=== PATIENT | female | born 1965 | race Caucasian/White ===

== ENCOUNTER 2020-03-28 15:21 | Outpatient (CLI) | payer OTHER, SELFPAY ==
--- NOTE | ~2020-03-28 | XR_ITS ---
XR knee LT 3V 03/28/2020 15:48 Indication: Left knee pain Procedure: 3 views left knee Comparison: No prior studies for comparison. Findings: Mild osteoarthritis of the left knee. No fracture or traumatic malalignment. No significant soft tissue abnormality. No joint effusion. Impression: 1: Mild osteoarthritis of the left knee. Reviewed, dictated and finalized at location A. Impression: 1: Mild osteoarthritis of the left knee.
== END 2020-03-28 15:22 | disposition home or self-care (01) ==
LOC: ANHIMG 15:31
PROVIDERS: PCP Family Medicine; Visit Provider Family Medicine
DX: M17.12 Unilateral primary osteoarthritis, left knee (principal)
CPT/HCPCS: 73562

== ENCOUNTER 2020-04-29 10:48 | Outpatient (CLI) | payer OTHER, SELFPAY ==
--- NOTE | ~2020-04-29 | MR_ITS ---
EXAMINATION: MR knee LT wo con DATE: 04/29/2020 12:06 INDICATION: Left knee pain. TECHNIQUE: Magnetic resonance imaging (MRI) of the left knee was performed without intravenous contra st. Sequences included axial PD-weighted FS FSE, coronal PD-weighted FSE and PD-weighted FS FSE, sagi ttal PD-weighted FSE, and sagittal T2-weighted FS FSE. COMPARISON: Left knee radiographs 03/28/2020 FINDINGS: Medial compartment: Medial meniscus is normal. There is shallow partial-thickness cartilage loss of femoral condyle invol ving the central articular surface. Tibial cartilage is normal. Lateral compartment: Lateral meniscus is normal. There is cartilage surface irregularity of femoral condyle and tibial con dyle. There is a subchondral insufficiency fracture of femoral condyle involving the central and post erior articular surface with low signal fracture line and surrounding bone marrow edema. Patellofemoral compartment: There is full-thickness cartilage loss of patellar median ridge and adjacent portions of the medial a nd lateral facets with mild subchondral edema-like marrow signal intensity. There is cartilage surfac e irregularity of trochlea. Ligaments and tendons: The anterior and posterior cruciate ligaments are normal. Medial collateral ligament is normal. There are changes of prior sprain of fibular collateral ligament characterized by thickening and increased signal intensity proximally. There is mild patellar tendinopathy. Fluid: There is a small knee joint effusion. There is trace fluid in a Billingsley's cyst. IMPRESSION: 1. Subchondral insufficiency fracture of lateral femoral condyle. 2. Severe chondrosis of patellofemoral compartment and mild chondrosis of medial and lateral compartm ents. 3. Small knee joint effusion. Reviewed, dictated and finalized at location A. IMPRESSION: 1. Subchondral insufficiency fracture of lateral femoral condyle. 2. Severe chondrosis of patellofemoral compartment and mild chondrosis of media l and lateral compartments. 3. Small knee joint effusion.
== END 2020-04-29 10:49 | disposition home or self-care (01) ==
PROVIDERS: PCP Family Medicine; Visit Provider Nurse Practitioner Family
DX: M25.562 Pain in left knee (principal); M84.452A Pathological fracture, left femur, initial encounter for fracture; M22.2X2 Patellofemoral disorders, left knee; M25.462 Effusion, left knee
CPT/HCPCS: 73721

== ENCOUNTER 2021-06-28 02:08 | Day surgery (SDC) | payer OTHER, SELFPAY ==
[2021-06-16 14:43] VITALS: BMI 29.1
[2021-06-28 09:07] VITALS: BP 143/78; PULSE 73; RESP 18; TEMP 37.1; O2SAT 100; BMI 29.8
[2021-06-28] MEDS: LACTATED RINGERS 1,000 ML 150 ML IV CONT (09:14)
--- NOTE | 2021-06-28 09:55 | WPDANESEPPF ---
Anes - Initial Pre Proc Eval Procedure: Operation Date: 06/28/21 10:15 Proposed Procedures p Esophagogastroduodenoscopy - Thom Osorio MD Date/Time: 06/28/21 09:55 Surgeon: Thom Osorio MD Pre Op Diagnosis: chest pain Patient Data Age: 56 Gender: F Height: 1.63 m Weight: 78.9 kg Last Vital Signs Temp 98.7 F 06/28/21 09:07 Pulse 73 06/28/21 09:07 Resp 18 06/28/21 09:07 BP 143/78 H 06/28/21 09:07 Pulse Ox 100 06/28/21 09:07 Allergies Allergy/AdvReac Type Severity Reaction Status Date / Time Penicillins Allergy Unknown rash Verified 06/28/21 09:06 Home Medications Medication Instructions Recorded Confirmed Type calcium carbonate 500 mg calcium 500 mg PO DAILY 08/04/19 06/16/21 History (1,250 mg) tablet Lactobacillus 1 cap PO DAILY 03/18/20 06/16/21 History acidophilus-Bifidobac.animalis 2.5 billion cell capsule cholecalciferol (vitamin D3) 75 75 mcg PO DAILY 03/18/20 06/16/21 History mcg (3,000 unit) tablet albuterol sulfate 90 mcg/actuation 1 puff INHALATION Q4H PRN #18 g 09/12/20 06/16/21 Rx aerosol inhaler hydrochlorothiazide 12.5 mg tablet 12.5 mg PO DAILY #90 tablet 04/04/21 06/16/21 Rx alendronate 70 mg tablet 70 mg PO WEEKLY #14 tablet 06/15/21 06/16/21 Rx losartan 50 mg tablet 50 mg PO DAILY #90 tablet 06/15/21 06/16/21 Rx valacyclovir [Valtrex] 500 mg PO DAILY 06/16/21 06/16/21 History fluticasone propionate 220 1 puff INHALATION Q12H #12 g 06/23/21 Rx mcg/actuation HFA aerosol inhaler Patient hx anesthesia problems: none Family hx anesthesia problems: none Results Review: All pre-operative results and documents have been reviewed as part of the pre-operative evaluation. [facility] Past Medical History Medical History (Updated 05/29/21 @ 20:37 by Vesta Garcia MD) Acute pain of left knee Allergic asthma Chondromalacia, patella Essential (primary) hypertension Herpes febrilis Hypertension Lateral epicondylitis of right elbow Lip licking dermatitis Mass of knee Osteopenia Patellofemoral syndrome Rosacea Subchondral insufficiency fracture of condyle of femur Vision abnormalities Surgical History Surgical History History of tonsillectomy and adenoidectomy Family History Family History Mother Hypertension Father Family history of hepatitis, Onset Age: 56 Patient's father is Grandparent Family history of osteoporosis Other Asthma Cerebrovascular accident Diabetes mellitus Social History Social History (Updated 05/18/21 @ 14:21 by Lorrie Sommer) Social History: Smoking status: Never smoker Second hand tobacco smoke exposure: No Alcohol intake: current Drinks per week: 6 Substance use: never Substance use type: does not use Living arrangements: with family Gender identity (if verbalized by the patient): Female Sexual Orientation (if Verbalized by the Patient): Straight or Heterosexual Spiritual care concerns: No Anes - Eval Final PreProcedure Day of Procedure 06/28/21 09:55 Patient weight: overweight Heart: regular rate and rhythm Lungs: clear to auscultation Airway: Mallampati scale class II Neurological: alert and oriented Last oral intake: >/= 8 hours ASA classification: II Emergent: no Anesthetic plan: proceed Anesthesia type and monitoring: general GIVS and standard monitoring Results Review: All pre-operative results and documents have been reviewed as part of the pre-operative evaluation. Informed Consent: The patient's anesthetic plan and its attendant risks and benefits were discussed with the patient/family/POA. Questions were solicited and answers provided to the satisfaction of the patient/family/POA.
--- NOTE | 2021-06-28 10:13 | PM.HPGS ---
History of Present Illness History of Present Illness Consent: Risks, benefits, and alternatives have been discussed and questions answered. Patient agrees to proceed with procedure. Chief complaint: chest pain Narrative: Jazmín Faustin is a 56 year old female with non-cardiac chest pain, never had egd Review of Systems Constitutional: Constitutional: Denies headache(s) and Denies weakness Eyes: Eyes: Denies blurry vision ENT: Reports Normal hearing present, Denies headache(s) and Denies neck pain Cardiovascular: Cardiovascular: Denies chest pain and Denies dyspnea Respiratory: Respiratory: Denies dyspnea Gastrointestinal: Gastrointestinal: Reports no additional gastrointestinal complaints Genitourinary: Genitourinary: Denies dysuria Musculoskeletal: Musculoskeletal: Denies neck pain Integumentary/Breasts: Skin/Breast: Denies dry skin Neurologic: Reports Normal hearing present, Denies headache(s) and Denies weakness Psychiatric: Psychiatric: Denies anxiety Endocrine: Endocrine: Denies change in body appearance Hematologic/Lymphatic: Hematologic/Lymphatic: Denies easy bleeding Allergic/Immunologic: Allergic/Immunologic: Denies urticaria PMFSH Past Medical History Medical History (Updated 06/28/21 @ 10:14 by Thom Osorio MD) Acute pain of left knee Allergic asthma Chondromalacia, patella Essential (primary) hypertension Herpes febrilis Hypertension Lateral epicondylitis of right elbow Lip licking dermatitis Mass of knee Non-cardiac chest pain Osteopenia Patellofemoral syndrome Rosacea Subchondral insufficiency fracture of condyle of femur Vision abnormalities Surgical History Surgical History History of tonsillectomy and adenoidectomy Family History Family History Mother Hypertension Father Family history of hepatitis, Onset Age: 56 Patient's father is Grandparent Family history of osteoporosis Other Asthma Cerebrovascular accident Diabetes mellitus Social History Social History (Updated 05/18/21 @ 14:21 by Lorrie Sommer) Social History: Smoking status: Never smoker Second hand tobacco smoke exposure: No Alcohol intake: current Drinks per week: 6 Substance use: never Substance use type: does not use Living arrangements: with family Gender identity (if verbalized by the patient): Female Sexual Orientation (if Verbalized by the Patient): Straight or Heterosexual Spiritual care concerns: No Meds Home Medications and Allergies Home Medications Medication Instructions Recorded Confirmed Type calcium carbonate 500 mg calcium 500 mg PO DAILY 08/04/19 06/16/21 History (1,250 mg) tablet Lactobacillus 1 cap PO DAILY 03/18/20 06/16/21 History acidophilus-Bifidobac.animalis 2.5 billion cell capsule cholecalciferol (vitamin D3) 75 75 mcg PO DAILY 03/18/20 06/16/21 History mcg (3,000 unit) tablet albuterol sulfate 90 mcg/actuation 1 puff INHALATION Q4H PRN #18 g 09/12/20 06/16/21 Rx aerosol inhaler hydrochlorothiazide 12.5 mg tablet 12.5 mg PO DAILY #90 tablet 04/04/21 06/16/21 Rx alendronate 70 mg tablet 70 mg PO WEEKLY #14 tablet 06/15/21 06/16/21 Rx losartan 50 mg tablet 50 mg PO DAILY #90 tablet 06/15/21 06/16/21 Rx valacyclovir [Valtrex] 500 mg PO DAILY 06/16/21 06/16/21 History fluticasone propionate 220 1 puff INHALATION Q12H #12 g 06/23/21 Rx mcg/actuation HFA aerosol inhaler Allergies Allergy/AdvReac Type Severity Reaction Status Date / Time Penicillins Allergy Unknown rash Verified 06/28/21 09:06 Vital Signs Vital Signs - 24 hr 06/28/21 09:07 Temperature 98.7 F Pulse Rate 73 Respiratory Rate 18 Blood Pressure 143/78 H Pulse Oximetry 100 Exam Const: General: comfortable and no acute distress HENMT: General nose exam: Normal nares present Eye
[2021-06-28 10:32] VITALS: BP 118/74; PULSE 81; RESP 18; O2SAT 100
[2021-06-28 10:42] VITALS: BP 116/78; PULSE 73; RESP 18; O2SAT 100
[2021-06-28 10:52] VITALS: BP 121/79; PULSE 71; RESP 18; O2SAT 96
== END 2021-06-28 10:57 | disposition home or self-care (01) ==
PROVIDERS: PCP Family Medicine; Visit Provider Internal Medicine Gastroenterology
PROC: 0DJ08ZZ Inspection of Upper Intestinal Tract, Via Natural or Artificial Opening Endoscopic (ICD-10-PCS; CPT 43235; principal; 2021-06-28 10:15)
DX: K21.00 Gastro-esophageal reflux disease with esophagitis, without bleeding (principal); K22.2 Esophageal obstruction; K44.9 Diaphragmatic hernia without obstruction or gangrene; K29.50 Unspecified chronic gastritis without bleeding; I10 Essential (primary) hypertension; J45.909 Unspecified asthma, uncomplicated; B00.1 Herpesviral vesicular dermatitis; Z79.51 Long term (current) use of inhaled steroids
CPT/HCPCS: 43239; 43249; 88305; C1726; J2001; J2704; J7120

== ENCOUNTER 2021-08-09 09:20 | Outpatient (CLI) | payer OTHER, SELFPAY ==
--- NOTE | 2021-08-09 13:41 | WPDPFTINT ---
PFT Procedure Performed PFT Procedure Performed Spirometry with Pre/Post Bronchodilator Plethysmography (Lung Vol) Diffusing Cap (DLCO) Flow Vol Loop PFT Interpretation Lung volumes were measured with the body plethysmography method. Lung volumes are unremarkable. Spirometry showed normal expiratory flow rates and a normal FEV1 to FVC ratio 69%. Following administration of a bronchodilator there was significant increase in the FEV1. Flow volume loop is unremarkable. The significant response to bronchodilators may indicate possible underlying obstructive airway disease. Clinical correlation advised. Impression: Spirometry, lung volumes, lung diffusion capacity all within the normal range.
== END 2021-08-09 09:21 | disposition home or self-care (01) ==
PROVIDERS: PCP Family Medicine; Visit Provider Family Medicine
DX: J45.909 Unspecified asthma, uncomplicated (principal)
CPT/HCPCS: 94060; 94726; 94729

== ENCOUNTER 2021-12-13 10:01 | Emergency (ER) | payer OTHER, SELFPAY ==
--- NOTE | 2021-12-13 10:04 | ED.URI ---
HPI - URI/Sore Throat General Stated Complaint: SORE THROAT Time Seen by Provider: 12/13/21 10:04 Source: patient Mode of arrival: ambulatory Limitations: no limitations History of Present Illness HPI Narrative: Ms. Faustin is a 56-year-old female patient presenting to the clinic today with complaints of sore throat x2 days. She reports she was around her grandkids over the weekend and is concerned that she may have gotten strep. She denies that her grandkids had had strep however they were coughing all over her. She does report some nasal congestion and a mild nonproductive cough. Reports that she had a low-grade temp last night with some chills and she was taking Motrin for this. She denies any known exposure to anyone with Covid or influenza. MD elicited complaint: sore throat and nasal congestion Related Data Home Medications Medication Instructions Recorded Confirmed calcium carbonate 500 mg calcium 500 mg PO DAILY 08/04/19 06/16/21 (1,250 mg) tablet Lactobacillus 1 cap PO DAILY 03/18/20 06/16/21 acidophilus-Bifidobac.animalis 2.5 billion cell capsule cholecalciferol (vitamin D3) 75 75 mcg PO DAILY 03/18/20 06/16/21 mcg (3,000 unit) tablet valacyclovir [Valtrex] 500 mg PO DAILY 06/16/21 06/16/21 Allergies Allergy/AdvReac Type Severity Reaction Status Date / Time Penicillins Allergy Unknown rash Verified 06/28/21 09:06 Review of Systems Review of Systems: Pertinent positives per HPI. Patient denies any rash, headache, visual changes, dizziness, cough, runny nose, shortness of breath, chest pain, palpitations, nausea, vomiting, diarrhea, constipation, abdominal pain, or any urinary issues. [facility] Past Medical History Medical History Acute pain of left knee Allergic asthma Chondromalacia, patella Essential (primary) hypertension Herpes febrilis Hypertension Lateral epicondylitis of right elbow Lip licking dermatitis Mass of knee Non-cardiac chest pain Osteopenia Patellofemoral syndrome Rosacea Subchondral insufficiency fracture of condyle of femur Vision abnormalities Surgical History Surgical History History of tonsillectomy and adenoidectomy Family History Family History Mother Hypertension Father Family history of hepatitis, Onset Age: 56 Patient's father is Grandparent Family history of osteoporosis Other Asthma Cerebrovascular accident Diabetes mellitus Social History Social History Social History: Smoking status: Never smoker Second hand tobacco smoke exposure: No Alcohol intake: current Drinks per week: 6 Substance use: never Substance use type: does not use Gender identity (if verbalized by the patient): Female Sexual Orientation (if Verbalized by the Patient): Straight or Heterosexual Spiritual care concerns: No Comments At the time of my signature, I reviewed and agree with the nursing past medical, surgical, social, and family history. There is no relevant family history pertinent to the patient complaint. Exam Narrative: General: Well-developed, well nourished, in no apparent distress Head: Normocephalic, atraumatic Eyes: Pupils equally round and reactive to light bilaterally, EOM intact, sclera and conjunctive clear, no discharge, lids normal Ears: TMs intact and clear, ear canals clear, no drainage, grossly hearing normal. Nose: Nares patent, clear nasal discharge, mild inflammation, no sinus tenderness. Mouth: Oral pharynx without lesions or masses, good dentition, MMM. Postnasal drip Neck: Supple, trachea midline, no enlargement of anterior or posterior cervical nodes, no thyroid masses or goiter palpable. Cardio: Regular rate and rhythm, s1 and s2 norm
[2021-12-13 10:11] VITALS: BP 159/94; PULSE 96; RESP 16; TEMP 36.9; O2SAT 100
== END 2021-12-13 10:25 | disposition home or self-care (01) ==
PROVIDERS: Emergency Provider Nurse Practitioner Family; PCP Family Medicine
DX: J06.9 Acute upper respiratory infection, unspecified (principal); R09.82 Postnasal drip; I10 Essential (primary) hypertension; M85.80 Other specified disorders of bone density and structure, unspecified site
CPT/HCPCS: 87081; 87880; 99213; G0463

== ENCOUNTER 2022-10-24 13:58 | Outpatient (CLI) | payer OTHER, SELFPAY ==
--- NOTE | ~2022-10-24 | XR_ITS ---
EXAMINATION: XR chest 2V Exam Date/Time: 10/24/2022 14:05 MANAGER PROCESS EXCELLENCE HISTORY: R05.9 - Cough SINCE 09/22/22, CHEST PAIN. HX ASTHMA Comparison: 10/21/2017. RESULT: Lines, tubes, and devices: None. Lungs and pleura: Clear. Cardiomediastinal silhouette: Stable. Other: No acute osseous or upper abdominal finding. Partially visualized 3 cm mixed lytic and sclero tic lesion in the proximal left humerus with rings and arcs of calcification. IMPRESSION: No acute cardiopulmonary process. 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 Consider dedicated right humeral radiograph for further evaluation. Reviewed, dictated and finalized at location K. GER PROCESS EXCELLENCE IMPRESSION: No acute cardiopulmonary process. 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 Consider dedicated right humeral radiograph for further evaluation.
--- NOTE | ~2022-10-24 | XR_ITS ---
EXAM: XR humerus RT DATE: 10/24/2022 17:44 HISTORY: D16.9 - Benign neoplasm of bone and articular cartilage, ... . COMPARISON: None available. FINDINGS: Normal mineralization. No fracture or dislocation. 3 cm mixed lytic and sclerotic lesion i n the proximal right humeral metaphysis, slightly eccentric, narrow zone of transition, with rings an d arcs of calcification. No significant endosteal scalloping, periosteal change, or soft tissue mass. Mild AC joint hypertrophy. Medial epicondylar enthesopathy at the elbow. No erosion or periosteal ch caprice. Soft tissues within normal limits. IMPRESSION: Nonaggressive appearing proximal right humeral lesion. Unless accompanied by pain, this i s most consistent with enchondroma. Continued clinical and radiographic follow-up is advised. Reviewed, dictated and finalized at location K. FACTURING TEST ENGINEER IMPRESSION: Nonaggressive appearing proximal right humeral lesion. Unless accom panied by pain, this is most consistent with enchondroma. Continued clinical an d radiographic follow-up is advised.
== END 2022-10-24 13:59 | disposition home or self-care (01) ==
PROVIDERS: PCP Family Medicine; Visit Provider Nurse Practitioner Gerontology
DX: R05.9 Cough, unspecified (principal); D16.9 Benign neoplasm of bone and articular cartilage, unspecified
CPT/HCPCS: 71046; 73060

== ENCOUNTER 2022-10-26 09:23 | Emergency (ER) | payer OTHER, SELFPAY ==
[2022-10-26] VITALS (22 sets, daily range): BP systolic 133–165; BP diastolic 78–90; PULSE 73–100; RESP 12–20; TEMP 36.1; O2SAT 97–100
--- NOTE | ~2022-10-26 | XR_ITS ---
EXAMINATION: XR chest 2V DATE: 10/26/2022 09:58 INDICATION: Chest pain. Cough. TECHNIQUE: Frontal and lateral views of the chest were obtained. COMPARISON: Chest 2 views 10/24/2022 FINDINGS: The chest demonstrates clear lungs without pneumonia, pleural effusion, or pneumothorax. Th e heart size is normal. IMPRESSION: 1. No acute cardiopulmonary disease. Reviewed, dictated and finalized at location A. UNTS RECEIVABLE COORDINATOR
--- NOTE | ~2022-10-26 | CT_ITS ---
EXAMINATION: CTA chest PE protocol DATE: 10/26/2022 10:29 INDICATION: Chest pain. TECHNIQUE: Computed tomography angiography (CTA) of the chest was performed with 100 mL Omnipaque-350 intravenous contrast timed to evaluate the pulmonary arteries. Coronal maximum intensity projection 3D-reconstructions were created by the technologist. Automated exposure control and iterative reconst ruction technique were employed. The dose-length product was 382.38 mGy-cm. COMPARISON: Chest 2 views 10/21/2017 FINDINGS: There is mosaic attenuation in the lungs, likely small airways disease. There is mild atele ctasis bilaterally. No pleural effusion. The heart size is normal. No pericardial effusion. There is no pulmonary embolus. There is thoracic dextroscoliosis and mild spondylosis. There is a chronic 2.3 cm sclerotic lesion in the proximal right humerus, stable from 10/21/2017, likely an enchondroma. IMPRESSION: 1. No pulmonary embolus. Reviewed, dictated and finalized at location A. ET MILL OPERATOR IMPRESSION: 1. No pulmonary embolus.
--- NOTE | 2022-10-26 09:26 | ECG_ITS ---
Measurements Intervals [place] Rate: 87 P: 57 WI: 151 QRS: -10 QRSD: 84 T: 42 QT: 338 QTc: 409 Interpretive Statements SINUS RHYTHM POSSIBLE LEFT ATRIAL ENLARGEMENT DELAYED PRECORDIAL R/S TRANSITION MINIMAL Q WAVES- INFERIOR LEADS BORDERLINE ECG NO PREVIOUS ECG AVAILABLE FOR COMPARISON Electronically Signed On 10-26-2022 9:38:55 OPERATING SYSTEM DESIGNER by Elvis Mauricio D.O.
--- NOTE | 2022-10-26 09:34 | ED.CHESTPAIN ---
HPI - Chest Pain General Chief Complaint: Chest Pain Stated Complaint: chest pain for about a week Time Seen by Provider: 10/26/22 09:30 Source: RN notes reviewed History of Present Illness HPI narrative: Patient presents emergency department from home for chest pain. Patient states he has been having intermittent chest pain over the right side of chest for the past 1 week. States that the pain has become worse over the past 2 days the pain is described as sharp and stabbing in nature and radiates around to the back she states is worse with deep inspiration and coughing. The patient states she began to have an upper respiratory infection approximately 2 weeks ago and states that her cough has improved since that time she denies any fevers or chills she denies any shortness of breath abdominal pain nausea or vomiting or any other symptoms states the pain will resolve if she holds her breath or is not breathing deeply but comes back with deep breathing and coughing Related Data Home Medications Medication Instructions Recorded Confirmed calcium carbonate 500 mg calcium 500 mg PO DAILY 08/04/19 10/15/22 (1,250 mg) tablet (Calcium 500) Lactobacillus 1 cap PO DAILY 03/18/20 10/15/22 acidophilus-Bifidobac.animalis 2.5 billion cell capsule (Daily Probiotic) cholecalciferol (vitamin D3) 75 75 mcg PO DAILY 03/18/20 10/15/22 mcg (3,000 unit) tablet Allergies Allergy/AdvReac Type Severity Reaction Status Date / Time Penicillins Allergy Unknown rash Verified 10/15/22 08:11 Review of Systems Review of Systems: Gen.: Denies fevers or chills ENT: Denies congestion Respiratory: Denies shortness of breath or cough CV: See HPI GI: Denies abdominal pain nausea, emesis or diarrhea Musculoskeletal: Denies back pain or muscle pain Neuro: Denies numbness, tingling, weakness or focal weakness Skin: Denies rash Except as documented, all other systems reviewed and negative PMFSH Past Medical History Medical History Abnormality of left breast on screening mammography Acute cystitis with hematuria Acute pain of left knee Allergic asthma Allergic rhinitis due to other allergen Chondromalacia, patella Dietary counseling and surveillance (03/31/19) Essential (primary) hypertension Herpes febrilis Hypertension Lateral epicondylitis of right elbow Lip licking dermatitis Mass of knee Mild intermittent asthma without complication Neoplasm of uncertain behavior of skin Non-cardiac chest pain Osteopenia Patellofemoral syndrome Rosacea Serratia marcescens infection Subchondral insufficiency fracture of condyle of femur Vision abnormalities Surgical History Surgical History History of tonsillectomy and adenoidectomy Family History Family History Mother Hypertension Father Family history of hepatitis, Onset Age: 56 Patient's father is Grandparent Family history of osteoporosis Other Asthma Cerebrovascular accident Diabetes mellitus Social History Social History Social History: Smoking status: Never smoker Second hand tobacco smoke exposure: No Alcohol intake: current Drinks per week: 6 Substance use: never Substance use type: does not use Living arrangements: with family Occupation/Education: occupation Gender identity (if verbalized by the patient): Female Sexual Orientation (if Verbalized by the Patient): Straight or Heterosexual Spiritual care concerns: No Exam Narrative: APPEARANCE: No acute distress, nontoxic, resting in bed EYES: EOMI HEENT: Normocephalic, atraumatic, OMM RESPIRATORY: No respiratory distress Clear to auscultation bilaterally with no rhonchi wheezing or rales. CARDIOVASCULAR: Regular rate and rhythm without murmurs rub
[2022-10-26 09:49] LABS: Basophils Absolute Auto 0.1 K/mm3 (0.0-0.1); Basophils Percent Auto 0.8 % (0.2-1.2); Eosinophils Absolute Auto 0.5 K/mm3 (0-0.3); Eosinophils Percent Auto 7.9 % (0-4.4); Hematocrit 38.9 % (37.0-47.0); Hemoglobin 12.6 g/dL (12.0-15.0); Immature Granulocyte Absolute 0.01 K/mm3 (0.00-0.031); Immature Granulocyte Percent A 0.2 % (0-0.5); Lymphocytes Absolute Auto 1.55 K/mm3 (0.9-3.2); Lymphocytes Percent Auto 25.4 % (18.3-44.2); Mean Corpuscular HGB Conc 32.4 g/dl (32-36); Mean Corpuscular Hemoglobin 29.2 pg (26-34); Mean Corpuscular Volume 90.3 fl (80-100); Mean Platelet Volume 9.6 fl (7.4-10.4); Monocytes Absolute Auto 0.4 K/mm3 (0.1-0.6); Monocytes Percent Auto 6.9 % (2.6-8.5); Neutrophils Absolute Auto 3.6 K/mm3 (1.3-6.7); Neutrophils Percent Auto 58.8 % (45.5-73.1); Platelet Count Result 296 k/mm3 (150-375); Red Blood Count 4.31 M/mm3 (4.2-5.4); Red Cell Distribution Width 13.8 % (11.5-14.5); White Blood Count 6.1 K/mm3 (4.5-10.0)
[2022-10-26 09:55] LABS: Chloride 102 mmol/L (98-107)
[2022-10-26 09:58] LABS: Alanine Aminotransferase 24 U/L (6-35); Albumin Level 4.1 g/dL (3.5-5.1); Alkaline Phosphatase 97 U/L (38-126); Anion Gap 4 mmol/L (8-16); Aspartate Amino Transferase 20 U/L (14-36); Bilirubin,Total 0.6 mg/dL (0.2-1.3); Blood Urea Nitrogen 18 mg/dL (7-17); Calcium 8.7 mg/dL (8.4-10.2); Carbon Dioxide 30 mmol/L (22-30); Estimated CRCL calculation 69 ml/min; Estimated Glomerular Filt Rate > 60; Glucose 114 mg/dL (65-110); Lipase 184 U/L (23-300); Potassium 3.4 mmol/L (3.4-5.0); Sodium 136 mmol/L (137-145)
[2022-10-26 10:00] LABS: INR 0.9; Prothrombin Time 12.2 Seconds (11.1-14.7)
[2022-10-26 10:01] LABS: Partial Thromboplastin Time 29.3 SECONDS (22.3-36.8)
[2022-10-26 10:08] LABS: Troponin I < 0.012 ng/mL (0.000-0.034)
[2022-10-26] MEDS: KETOROLAC 30 MG/ML VIAL (*BKC) IV PUSH (10:08)
[2022-10-26 10:09] LABS: D Dimer 0.58 ug/mL (<0.48)
--- NOTE | 2022-10-26 10:22 | PC.NURSE ---
Pt updated on lab results and need to rule out PE. Updated on plan for CT, pt to CT at this time.
[2022-10-26 10:30] LABS: Influenza A QL RT-PCR Negative (Negative); Influenza B QL RT-PCR Negative (Negative); RSV RNA, RT-PCR Negative (Negative); SARS-CoV-2 RNA PCR Negative
[2022-10-26 12:58] LABS: Troponin I < 0.012 ng/mL (0.000-0.034)
== END 2022-10-26 13:57 | disposition home or self-care (01) ==
PROVIDERS: Emergency Provider Emergency Medicine; PCP Family Medicine
DX: R07.89 Other chest pain (principal); Z20.822 Contact with and (suspected) exposure to COVID-19; I10 Essential (primary) hypertension; J45.20 Mild intermittent asthma, uncomplicated; M85.80 Other specified disorders of bone density and structure, unspecified site
CPT/HCPCS: 36415; 71046; 71275; 80053; 83690; 84484; 85025; 85380; 85610; 85730; 87637; 93005; 96374; 99284; J1885; Q9967

== ENCOUNTER 2022-12-17 08:18 | Emergency (ER) | payer OTHER, SELFPAY ==
[2022-12-17 08:26] VITALS: BP 134/86; PULSE 95; RESP 16; TEMP 37.3; O2SAT 97
--- NOTE | 2022-12-17 08:35 | ED.FEMALEGU ---
HPI - Female Genitourinary General Chief complaint: Urogenital-Female Stated complaint: UTI SYMPTOMS Time Seen by Provider: 12/17/22 08:35 Source: patient Mode of arrival: ambulatory Limitations: no limitations History of Present Illness HPI Narrative: 57-year-old female presents with complaint of urinary frequency, urgency, dysuria, low back pain for 3 days. Reports body aches since yesterday. Denies nausea vomiting diarrhea. Afebrile. All systems reviewed and negative except as noted above. Related Data Home Medications Medication Instructions Recorded Confirmed calcium carbonate 500 mg calcium 500 mg PO DAILY 08/04/19 12/17/22 (1,250 mg) tablet (Calcium 500) Lactobacillus 1 cap PO DAILY 03/18/20 12/17/22 acidophilus-Bifidobac.animalis 2.5 billion cell capsule (Daily Probiotic) cholecalciferol (vitamin D3) 75 75 mcg PO DAILY 03/18/20 12/17/22 mcg (3,000 unit) tablet Allergies Allergy/AdvReac Type Severity Reaction Status Date / Time Penicillins Allergy Unknown rash Verified 12/17/22 08:37 Review of Systems Review of Systems: CONSTITUTIONAL: Denies fever, chills, or sweats. EYES: Denies visual changes, redness, or discharge. ENT: Denies rhinorrhea, congestion, sore throat, or otalgia. CARDIOVASCULAR: Denies chest pain, palpitations, or edema. RESPIRATORY: Denies cough or dyspnea. GASTROINTESTINAL: Denies abdominal pain, nausea, vomiting, or diarrhea. GENITOURINARY: Reports dysuria, frequency. Denies hematuria. SKIN: Denies rash or itching. MUSCULOSKELETAL: Denies back pain, joint pain. Reports myalgia. NEUROLOGIC: Denies headache, numbness, or weakness. PSYCHIATRIC: Denies anxiety or depression. All other systems reviewed are negative, except as documented in HPI. [facility], [facility] Past Medical History Medical History (Updated 12/17/22 @ 08:41 by Adriana Mckee NP) Abnormality of left breast on screening mammography Acute cystitis with hematuria Acute pain of left knee Allergic asthma Allergic rhinitis due to other allergen AOM (acute otitis media) Bronchitis Chest pressure Chest pressure Chondromalacia, patella Cough Dietary counseling and surveillance (03/31/19) Essential (primary) hypertension Herpes febrilis Hypertension Lateral epicondylitis of right elbow Lip licking dermatitis Mass of knee Mild intermittent asthma without complication Neoplasm of uncertain behavior of skin Non-cardiac chest pain Osteopenia Patellofemoral syndrome Rosacea Serratia marcescens infection Sinusitis Strep pharyngitis Subchondral insufficiency fracture of condyle of femur Vision abnormalities Well woman exam with routine gynecological exam Surgical History Surgical History History of tonsillectomy and adenoidectomy Family History Family History Mother Hypertension Father Family history of hepatitis, Onset Age: 56 Patient's father is Grandparent Family history of osteoporosis Other Asthma Cerebrovascular accident Diabetes mellitus Social History Social History Social History: Smoking status: Never smoker Second hand tobacco smoke exposure: No Alcohol intake: current Drinks per week: 6 Substance use: never Substance use type: does not use Living arrangements: with family Occupation/Education: occupation Gender identity (if verbalized by the patient): Female Sexual Orientation (if Verbalized by the Patient): Straight or Heterosexual Spiritual care concerns: No Comments At time of signature, agree with nursing past medical, surgical, social and family history. There is no relevant family history pertinent to the presenting complaint. Exam Narrative: GENERAL: This is a well-nourished, well-developed patient, in no apparent distress. HEAD: normocephalic, atrau
== END 2022-12-17 08:42 | disposition home or self-care (01) ==
PROVIDERS: Emergency Provider Nurse Practitioner Family; PCP Family Medicine
DX: N39.0 Urinary tract infection, site not specified (principal); I10 Essential (primary) hypertension
CPT/HCPCS: 81003; 87077; 87086; 87186; 99213; G0463

== ENCOUNTER 2023-01-29 07:40 | Outpatient (CLI) | payer OTHER, SELFPAY ==
--- NOTE | ~2023-01-29 | DEXA_ITS ---
Bone Density Report Name: MERARY ROBINS Age: 57 Sex: Female Ethnicity: White Date of : 1965 Indication: postmenopausal; screening for osteoporosis; asthma or emphysema; Referring Provider: CJ OLGUIN Study: Bone densitometry was performed. Exam Date: January 29, 2023 Accession number: [id number] Bone Density: Region BMD T-score Z-score Classification AP Spine(L1-L4) 0.989 -0.5 0.9 Normal Femoral Neck (Left) 0.606 -2.2 -0.9 Osteopenia Total Hip (Left) 0.776 -1.4 -0.4 Osteopenia Femoral Neck (Right) 0.654 -1.8 -0.5 Osteopenia Total Hip (Right) 0.779 -1.3 -0.4 Osteopenia Total Hip Mean 0.777 -1.4 -0.4 Osteopenia World Health Organization criteria for BMD impression classify patients as: Normal (T-score at or above -1.0), Osteopenia (T-score between -1.0 and -2.5), or Osteoporosis (T-score at or below -2.5). 10-year Fracture Risk: FRAX not reported because: Treated for osteoporosis Clinical Information Provided by Patient: Is being treated for osteoporosis Has used the following medications: Fosamax (i.e. alendronate), Vitamin D, Calcium Has the following medical conditions: Asthma or Emphysema Patient maximum height was 64.5 Menopause Age: 46 No regular weight bearing exercise Drinks caffeinated beverages Onset of menses at age 11 Number of children 2 Impression: The patient has low bone mass, based on the Left Femoral Neck T-score. Discussion: It is important to ask patients whether they are taking their medications and to encourage continued and appropriate compliance with their osteoporosis therapies to reduce fracture risk. It is also important to review their risk factors and encourage appropriate calcium and vitamin D intakes, exercise, fall prevention and other lifestyle measures. Follow-Up: Consider a repeat BMD and Vertebral Fracture Assessment (VFA) exam in 2 years or sooner if medically necessary, to reassess this patient's status. Reported by: [facility] on 01/29/2023 8:01:00 AM. Reviewed, dictated and finalized at location ASharon CHAMBERLAIN
== END 2023-01-29 07:41 | disposition home or self-care (01) ==
LOC: ANHIMG 07:41
PROVIDERS: PCP Family Medicine; Visit Provider Nurse Practitioner Gerontology
DX: Z78.0 Asymptomatic menopausal state (principal); M85.852 Other specified disorders of bone density and structure, left thigh; M85.851 Other specified disorders of bone density and structure, right thigh
CPT/HCPCS: 77080

== ENCOUNTER 2023-09-15 08:09 | Emergency (ER) | payer OTHER, SELFPAY ==
[2023-09-15 08:20] VITALS: BP 147/91; PULSE 80; RESP 16; TEMP 36.8; O2SAT 100
--- NOTE | 2023-09-15 08:31 | ED.GENADULT ---
HPI - General Adult General Chief complaint: Urogenital-Female Stated complaint: UTI SYMPTOMS Source: patient Mode of arrival: ambulatory Limitations: no limitations History of Present Illness HPI narrative: Patient presents for evaluation of urinary symptoms for last 2 days. Symptoms include urinary urgency and mild dysuria. She had some low back pain but that has resolved. She has also had some chills. She denies any fever, abdominal /suprapubic pain, hematuria, nausea or vomiting. She has had similar symptoms in the past with UTI. Related Data Home Medications Medication Instructions Recorded Confirmed calcium carbonate 500 mg calcium 500 mg PO DAILY 08/04/19 09/15/23 (1,250 mg) tablet (Calcium 500) Lactobacillus 1 cap PO DAILY 03/18/20 09/15/23 acidophilus-Bifidobac.animalis 2.5 billion cell capsule (Daily Probiotic) cholecalciferol (vitamin D3) 75 75 mcg PO DAILY 03/18/20 09/15/23 mcg (3,000 unit) tablet Allergies Allergy/AdvReac Type Severity Reaction Status Date / Time Penicillins Allergy Unknown rash Verified 09/15/23 08:15 [id number] Reductase AdvReac Intermediate Muscle Pain Verified 09/15/23 08:15 Inhibitor Review of Systems Review of Systems: CONSTITUTIONAL: Reports recent chills, none currently. Denies fever, or sweats. EYES: Denies visual changes, redness, or discharge. ENT: Denies rhinorrhea, congestion, sore throat, or otalgia. CARDIOVASCULAR: Denies chest pain, palpitations, or edema. RESPIRATORY: Denies cough or dyspnea. GASTROINTESTINAL: Denies abdominal pain, nausea, vomiting, or diarrhea. GENITOURINARY: Reports urinary urgency and mild dysuria SKIN: Denies rash or itching. MUSCULOSKELETAL: Reports recent back pain, none currently. Denies joint pain, or myalgia. NEUROLOGIC: Denies headache, numbness, dizziness, or weakness. PSYCHIATRIC: Denies anxiety or depression. [facility] Past Medical History Medical History Abnormality of left breast on screening mammography Acute cystitis with hematuria Acute pain of left knee Allergic asthma Allergic rhinitis due to other allergen AOM (acute otitis media) Bronchitis Chest pressure Chest pressure Chondromalacia, patella Cough Dietary counseling and surveillance (03/31/19) Essential (primary) hypertension Herpes febrilis Hypertension Lateral epicondylitis of right elbow Lip licking dermatitis Mass of knee Mild intermittent asthma without complication Neoplasm of uncertain behavior of skin Non-cardiac chest pain Osteopenia Patellofemoral syndrome Rosacea Serratia marcescens infection Sinusitis Strep pharyngitis Subchondral insufficiency fracture of condyle of femur Vision abnormalities Well woman exam with routine gynecological exam Surgical History Surgical History History of tonsillectomy and adenoidectomy Family History Family History Mother Hypertension Father Family history of hepatitis, Onset Age: 56 Patient's father is Grandparent Family history of osteoporosis Other Asthma Cerebrovascular accident Diabetes mellitus Social History Social History Social History: Smoking status: Never smoker Second hand tobacco smoke exposure: No Alcohol intake: current Drinks per week: 6 Substance use: never Substance use type: does not use Living arrangements: with family Occupation/Education: occupation Gender identity (if verbalized by the patient): Female Sexual Orientation (if Verbalized by the Patient): Straight or Heterosexual Spiritual care concerns: No Exam Narrative: GENERAL: Well-appearing, well-nourished, and in no acute distress. HEAD: Normocephalic, atraumatic. EYES: PERRLA and EOMI. ENT: N
== END 2023-09-15 08:32 | disposition home or self-care (01) ==
PROVIDERS: Emergency Provider Nurse Practitioner; PCP Family Medicine
DX: N39.0 Urinary tract infection, site not specified (principal); B96.20 Unspecified Escherichia coli [E. coli] as the cause of diseases classified elsewhere; I10 Essential (primary) hypertension; J45.909 Unspecified asthma, uncomplicated
CPT/HCPCS: 81003; 87077; 87086; 87186; 99213; G0463

== ENCOUNTER 2024-03-12 08:46 | Emergency (ER) | payer OTHER, SELFPAY ==
[2024-03-12 08:56] VITALS: BP 146/87; PULSE 81; RESP 15; TEMP 36.5; O2SAT 99
--- NOTE | 2024-03-12 09:05 | ED.FEMALEGU ---
HPI - Female Genitourinary General Chief complaint: Urogenital-Female Stated complaint: Uti Symptoms Source: patient and RN notes reviewed Mode of arrival: ambulatory Limitations: no limitations History of Present Illness HPI Narrative: 58-year-old female presented for complaint of burning with urination, frequency, and blood in urine, onset this morning. Took AZO. Symptoms are similar to previous UTIs. Denies nausea, vomiting, abdominal pain, flank pain, constipation, diarrhea, fevers or chills. Related Data Home Medications Medication Instructions Recorded Confirmed calcium carbonate (Calcium 500) 500 mg PO DAILY 08/04/19 03/12/24 Lactobacillus 1 cap PO DAILY 03/18/20 03/12/24 acidophilus-Bifidobac.animalis 2.5 billion cell capsule (Daily Probiotic) cholecalciferol (vitamin D3) 75 75 mcg PO DAILY 03/18/20 03/12/24 mcg (3,000 unit) tablet Allergies Allergy/AdvReac Type Severity Reaction Status Date / Time Penicillins Allergy Unknown rash Verified 03/12/24 08:59 Zyzqrsd-JCZ-HpO Reductase AdvReac Intermediate Muscle Pain Verified 03/12/24 08:59 Inhibitor Review of Systems Review of Systems: CONSTITUTIONAL: Denies body aches, fever, chills, or sweats. CARDIOVASCULAR: Denies chest pain, palpitations, or edema. RESPIRATORY: Denies cough or dyspnea. GASTROINTESTINAL: Denies abdominal pain, nausea, vomiting, or diarrhea. GENITOURINARY: Reports dysuria, frequency, urgency, hematuria, denies flank pain SKIN: Denies rash, itching, or wounds. MUSCULOSKELETAL: Denies back pain or myalgia. [facility] Past Medical History Medical History Abnormality of left breast on screening mammography Acute cystitis with hematuria Acute pain of left knee Allergic asthma Allergic rhinitis due to other allergen AOM (acute otitis media) Bronchitis Chest pressure Chest pressure Chondromalacia, patella Cough Dietary counseling and surveillance (03/31/19) Essential (primary) hypertension Herpes febrilis Hypertension Lateral epicondylitis of right elbow Lip licking dermatitis Mass of knee Mild intermittent asthma without complication Neoplasm of uncertain behavior of skin Non-cardiac chest pain Osteopenia Patellofemoral syndrome Rosacea Serratia marcescens infection Sinusitis Strep pharyngitis Subchondral insufficiency fracture of condyle of femur Vision abnormalities Well woman exam with routine gynecological exam Surgical History Surgical History History of tonsillectomy and adenoidectomy Family History Family History Mother Hypertension Father Family history of hepatitis, Onset Age: 56 Patient's father is Grandparent Family history of osteoporosis Other Asthma Cerebrovascular accident Diabetes mellitus Social History Social History Social History: Smoking status: Never smoker Second hand tobacco smoke exposure: No Alcohol intake: current Drinks per week: 6 Substance use: never Substance use type: does not use Do You Feel Safe in your Home?: Yes Lack of Transportation: No Lack of Food: Never True Current Housing: I Have Housing Concerned About Future Housing: No Difficulty Paying Gas/Electric Bills: No Difficulty Paying for Meds: No Currently Unemployed: No Education: Don't Know Difficulty w/ Childcare or Family Care: No Living arrangements: with family Occupation/Education: occupation Gender identity (if verbalized by the patient): Female Sexual Orientation (if Verbalized by the Patient): Straight or Heterosexual Spiritual care concerns: No Comments At time of signature, I have reviewed and agree with nursing past medical, surgical, social and family history unless otherwise noted. Please see n
== END 2024-03-12 09:12 | disposition home or self-care (01) ==
PROVIDERS: Emergency Provider Nurse Practitioner Family; PCP Family Medicine
DX: N39.0 Urinary tract infection, site not specified (principal); I10 Essential (primary) hypertension; M85.80 Other specified disorders of bone density and structure, unspecified site
CPT/HCPCS: 81003; 87086; 87088; 99213; G0463

== ENCOUNTER 2024-08-13 10:07 | Outpatient (CLI) | payer OTHER, SELFPAY ==
--- NOTE | ~2024-08-13 | XR_ITS ---
Cervical Spine: AP, lateral, open-mouth views Clinical History: Pain Findings: There is mild reversal of the normal cervical lordosis. No fracture or subluxation seen. Th ere is advanced degenerative disc narrowing at C5-C6 and C6-C7. There is mild to moderate facet arthr opathy. Pre-vertebral soft tissues are unremarkable. Impression: Moderate degenerative spondylosis overall, as above. Reviewed, dictated and finalized at location . GER CRISIS Impression: Moderate degenerative spondylosis overall, as above.
== END 2024-08-13 10:08 | disposition home or self-care (01) ==
PROVIDERS: PCP Family Medicine; Visit Provider Physician Assistant
DX: M47.812 Spondylosis without myelopathy or radiculopathy, cervical region (principal)
CPT/HCPCS: 72040

== ENCOUNTER 2024-08-19 10:59 | Outpatient (CLI) | payer OTHER, SELFPAY ==
--- NOTE | ~2024-08-19 | XR_ITS ---
CHEST RADIOGRAPH, PA AND LATERAL CLINICAL HISTORY: R05.9 - Cough, unspecified . COMPARISON: 10/26/2022 TECHNIQUE: PA and lateral views of the chest. FINDINGS The cardiomediastinal silhouette is unremarkable. The lungs are clear. Visualized osseous structures and soft tissues are unremarkable. IMPRESSION: No focal infiltrate or effusion. Reviewed, dictated and finalized at location A. [employer]
== END 2024-08-19 11:00 | disposition home or self-care (01) ==
LOC: MICIMG 11:00
PROVIDERS: PCP Family Medicine; Visit Provider Physician Assistant
DX: R05.9 Cough, unspecified (principal)
CPT/HCPCS: 71046

== ENCOUNTER 2024-10-01 14:45 | Outpatient (RCR) | payer OTHER, SELFPAY ==
--- NOTE | 2024-08-20 14:23 | OPREHPOC ---
Outpatient Therapy Plan of Care This is a Multidisciplinary Plan of Care that may contain components documented by all disciplines (PT, OT, and ST.) PT Problem 1 PT Problem #1 Knowledge Deficit PT Goal 1 Goal / Goal Update Pt to be IND with issued HEP Target Visit 4 PT Problem 2 PT Problem #2 Pain PT Goal 1 Goal / Goal Update 1. Pt to report neck pain no greater than 2/10 in the last week Target Visit 10 PT Problem 3 PT Problem #3 Impaired Sensation PT Goal 1 Goal / Goal Update 1. Pt to decline altered sensation in the last week. Target Visit 10 PT Problem 4 PT Problem #4 Impaired Strength PT Goal 1 Goal / Goal Update 1. Pt to demonstrate improved closed chair scapular stability Target Visit 10
--- NOTE | 2024-08-20 14:23 | PTOPEVAL1 ---
Assessment and note entered by Sanna Stevens, PT, DPT Evaluation Information Assessment Status Evaluation Diagnosis neck pain with radiculopathy ICD-10 Condition Codes (PT) Cervicalgia M54.2,M54.13 Subjective Information Pt states in February she flew internationally and states she slept on the pain in a weird position and it seemed like she got a crink in her neck. She states this initial pain lasted for about 3 weeks. Since then pt reports random flair up that cause her pain. Pt does a lot of work on a computer and states she has been more conscious of her positioning while working. She reports frequent headaches, some being neck related and others being likely hormonal. Hx of L cubital tunnel syndrome Reported Pain Level Pain Score 3: Self Report Assessment PT Clinical Summary Pt presents to therapy today for her initial evaluation with a diagnosis of cervical radiculopathy. Today she demonstrates a mild decrease in cervical ROM, mild forward shoulder, and a hx of cubital tunnel syndrome. Today pt was education on benefits of scapular stability, upright posture, and improved cervical ROM. Was issued an HEP. Skilled therapy services are indicated to improve movement mechanics, scapular strength, to limit pain reports, and to return to prior level of function. Plan of Care Interventions Electrical Stimulation,Hot Pack/Cold Pack,Manual Therapy,Mechanical Traction,Neuro Re-education, Patient/Caregiver Educati,Therapeutic Activities, Therapeutic Exercise PT Services Indicated Yes Treatment Frequency and 1x/wk for 8 visits Duration These treatments will address the objective and functional deficits as defined above. The patient will be advanced safely and appropriately in order for the patient to progress towards his/her prior level of function. Additional exercises will be introduced and as well as a comprehensive home exercise program upon discharge, if needed, ?to ensure carryover of functional gains achieved in the clinic. This treatment plan has been reviewed and agreement upon by the patient.
--- NOTE | 2024-09-24 08:10 | PCPTNOTE ---
Patients scheduled appointment 09/21/24 was cancelled due to the treating therapist being out of the office d/t illness.
--- NOTE | 2024-10-01 15:32 | OPREHPOC ---
Outpatient Therapy Plan of Care This is a Multidisciplinary Plan of Care that may contain components documented by all disciplines (PT, OT, and ST.) PT Problem 1 PT Problem #1 Knowledge Deficit PT Goal 1 Goal / Goal Update Pt to be IND with issued HEP Target Visit 4 Progress Met PT Problem 2 PT Problem #2 Pain PT Goal 1 Goal / Goal Update 1. Pt to report neck pain no greater than 2/10 in the last week Target Visit 10 Progress Met PT Problem 3 PT Problem #3 Impaired Sensation PT Goal 1 Goal / Goal Update 1. Pt to decline altered sensation in the last week. Target Visit 10 Progress Met PT Problem 4 PT Problem #4 Impaired Strength PT Goal 1 Goal / Goal Update 1. Pt to demonstrate improved closed chair scapular stability Target Visit 10 Progress Met
--- NOTE | 2024-10-01 15:32 | PTOPDC ---
Assessment and note entered by Sanna Stevens, PT, DPT Evaluation Information Assessment Status Discharge Diagnosis neck pain with radiculopathy ICD-10 Condition Codes (PT) Cervicalgia M54.2,Radiculopathy, cervical M54.13 Subjective Information Pt states she is doing really well. She states for the last 3 days she has felt back to normal. She reports that her headaches have subsided as well. She at times will have some discomfort while sleeping. Reported Pain Level Pain Score 0: Self Report Assessment PT Clinical Summary Pt presents to therapy today for her progress report following 5 visits of skilled therapy to treat her diagnosis of cervical radiculopathy. Today she demonstrates improved cervical ROM in all directions, improved posture, and decreased pain reports. She reports no radicular symptoms in the last week. She has met all of her therapy goals and no longer requires skilled services, she will be discharged at this time.
== END 2024-10-01 16:03 | disposition home or self-care (01) ==
LOC: ANHGOSHPT 14:45
PROVIDERS: PCP Family Medicine; Visit Provider Physician Assistant
DX: M54.2 Cervicalgia (principal); R20.0 Anesthesia of skin; R20.2 Paresthesia of skin
CPT/HCPCS: 97110; 97140; 97161; 97530

== ENCOUNTER 2025-07-13 09:15 | Outpatient (CLI) | payer OTHER, SELFPAY ==
--- NOTE | ~2025-07-13 | DEXA_ITS ---
Bone Density Report Name: MERARY ROBINS Age: 60 Sex: Female Ethnicity: White Date of : 1965 Indication: osteopenia; asthma or emphysema; Referring Provider: JOLEEN NOVOA Study: Bone densitometry was performed. Exam Date: July 13, 2025 Accession number: [id number] Bone Density: Region BMD T-score Z-score Classification AP Spine(L1-L4) 0.981 -0.6 1.0 Normal Femoral Neck (Left) 0.582 -2.4 -1.0 Osteopenia Total Hip (Left) 0.766 -1.4 -0.4 Osteopenia Femoral Neck (Right) 0.641 -1.9 -0.5 Osteopenia Total Hip (Right) 0.774 -1.4 -0.3 Osteopenia Total Hip Mean 0.770 -1.4 -0.4 Osteopenia World Health Organization criteria for BMD impression classify patients as: Normal (T-score at or above -1.0), Osteopenia (T-score between -1.0 and -2.5), or Osteoporosis (T-score at or below -2.5). 10-year Fracture Risk(1): Major Osteoporotic Fracture 11% Hip Fracture 1.8% Reported Risk Factors: [place] (), Neck BMD=0.582, BMI=31.0 (1) FRAX(R) Version 3.08. Fracture probability calculated for an untreated patient. Fracture probability may be lower if the patient has received treatment. Previous Exams: -- Region Exam Age BMD T-score BMD Change BMD Change Date g/cm2 vs Baseline vs Previous -- AP Spine (L1-L4) 07/13/2025 60 0.981 -0.6 -0.8% -0.8% 01/29/2023 57 0.989 -0.5 Total Hip(Left) 07/13/2025 60 0.766 -1.4 -1.4% -1.4% 01/29/2023 57 0.776 -1.4 Total Hip(Right) 07/13/2025 60 0.774 -1.4 -0.5% -0.5% 01/29/2023 57 0.779 -1.3 -- *Denotes significance at 95% confidence level, LSC for AP Spine = 0.022 g/cm2, LSC for Total Hip = 0.027 g/cm2 Clinical Information Provided by Patient: Has used the following medications: Fosamax (i.e. alendronate), Vitamin D, Calcium Has the following medical conditions: Asthma or Emphysema Patient maximum height was 64.5 Menopause Age: 46 Drinks caffeinated beverages Onset of menses at age 11 Number of children 2 Impression: The patient has low bone mass, based on the Left Femoral Neck T-score. The patient has an estimated ten-year risk of hip fracture of 1.8% and an estimated ten-year risk of major fracture of 11%, based on the WHO FRAX algorithm. No significant bone loss was observed. Discussion: BONE DENSITY IS LOW AT ONE OR MORE SKELETAL SITES. This patient's lowest T-score is low at one or more skeletal sites. It meets the World Health Organization's (WHO) criteria for ?low bone mass? (T-score between -1.0 and -2.5). The patient's 10-year risk of fracture as calculated by FRAX is less than the threshold where pharmacological therapy is recommended by the National Osteoporosis Foundation (NOF). However, all treatment decisions require clinical judgment and consideration of individual patient factors, including patient preferences, comorbidities, previous drug use, risk factors not captured in the FRAX model (e.g., frailty, falls, vitamin D deficiency, increased bone turnover, interval significant decline in bone density) and possible under or overestimation of fracture risk by FRAX. The patient should follow a healthful lifestyle (good nutrition with adequate calcium and vitamin D, and appropriate weight-bearing exercise). Follow-Up: Consider repeating this study in 2 to 3 years to reassess this patient's status, or sooner if there is some new clinical indication. Reported by: OXANA on 07/13/2025 9:29:00 AM. Reviewed, dictated and finalized at location A.
== END 2025-07-13 09:16 | disposition home or self-care (01) ==
LOC: MICIMG 09:15
PROVIDERS: PCP Family Medicine; Visit Provider Physician Assistant
DX: Z78.0 Asymptomatic menopausal state (principal); M85.852 Other specified disorders of bone density and structure, left thigh; M85.851 Other specified disorders of bone density and structure, right thigh
CPT/HCPCS: 77080